=== PATIENT | male | born 1965 | race Caucasian/White ===

== ENCOUNTER 2016-05-20 15:23 | Emergency (ER) | payer MEDICAID, OTHER ==
[~2016-05-20] VITALS: Ht 180.3 cm; Wt 108.9 kg
[2016-05-20 16:04] LABS: Basophils # (auto) 0 uL; Basophils % (auto) 0.2 % (0.0-2.0); Eosinophils # (auto) 0 uL; Eosinophils % (auto) 0.1 % (0.0-7.0); Hematocrit 44.7 % (41.0-53.0); Hemoglobin 14.9 g/dL (13.5-17.5); Lymphocytes # (auto) 1.6 uL; Lymphocytes % (auto) 13.2 % (10.0-50.0); Mean Corpuscular Hemoglobin 28.1 pg (28.0-32.0); Mean Corpuscular Hgb Conc. 33.4 g/dL (32.0-36.0); Mean Corpuscular Volume 84.2 fL (80.0-100.0); Mean Platelet Volume 7.8 fL (7.4-10.4); Monocytes # (auto) 0.4 uL; Monocytes % (auto) 3.1 % (0.0-12.0); Neutrophils # (auto) 9.8 uL; Neutrophils % (auto) 83.4 % (37.0-80.0); Platelet Count (auto) 317 10^3/uL (140-450); Red Cell Distribution Width 13.5 % (11.6-16.0); White Blood Cell 11.8 10^3/uL (4.4-10.8)
[2016-05-20 16:22] LABS: BUN/Creatinine Ratio 11.8; Calcium 8.7 mg/dL (8.5-10.1); Magnesium 2.2 mg/dL (1.6-2.6); Potassium 3.8 mmol/L (3.5-5.1)
[2016-05-20] MEDS ORDERED: LABETALOL HCL 5 MG/ML 4ML SYRINGE IV ONE (16:30)
[2016-05-20] MEDS ORDERED: ONDANSETRON HCL 4 MG/2 ML VIAL IV ONE (16:30)
[2016-05-20] MEDS ORDERED: cefTRIAXone 1GM/50ML D5W 50 ML IV ONE (16:30)
[2016-05-20] MEDS ORDERED: MORPHINE SULFATE 4 MG/ML SYRG IV ONE (16:30)
[2016-05-20 16:36] LABS: Bilirubin, Total 0.3 mg/dL (0.2-1.0); Total Protein 8.1 g/dL (6.4-8.2)
[2016-05-20 17:11] LABS: Urine Bilirubin Negative (Negative); Urine Blood Negative /uL (Negative); Urine Color Yellow (Yellow); Urine Glucose Normal (Normal); Urine Ketone Negative (Negative); Urine Nitrite Negative (Negative); Urine RBC 2 /hpf (0 - 3); Urine Squamous Epithelial Cell FEW /hpf (<5); Urine Urobilinogen Normal (Negative)
[2016-05-20 17:28] LABS: INR 1.02 (0.9-1.15); Partial Thromboplastin Time 26.2 sec (22.64-33.71); Prothrombin Time 10.5 sec (9.37-12.3)
[2016-05-20] MEDS ORDERED: CLOPIDOGREL BISULFATE 75 MG TAB PO ONE (17:45)
[2016-05-20] MEDS ORDERED: ENOXAPARIN SOD 120 MG/0.8 ML SYRINGE SC ONE (17:45)
[2016-05-20] MEDS ORDERED: SODIUM CHLORIDE 0.9% 1,000 ML IV SCH (18:05)
[2016-05-20] MEDS ORDERED: TEMAZEPAM 15 MG CAP PO PRN (18:15)
[2016-05-20] MEDS ORDERED: PROMETHAZINE HCL 25 MG/ML 1ML IV PRN (18:15)
[2016-05-20] MEDS ORDERED: ACETAMINOPHEN 500 MG TAB PO PRN (18:15)
[2016-05-20] MEDS ORDERED: MORPHINE SULF INJ 2 MG/ML SYRINGE 1ML IV PRN ×2 (18:15)
[2016-05-20] MEDS ORDERED: LACTULOSE 20Gm/30ML SOLN PO PRN (18:15)
[2016-05-20] MEDS ORDERED: DEXTROSE (50%) 50ML SYRG IV PRN (18:15)
[2016-05-20] MEDS ORDERED: LORazepam 0.5 MG TAB PO PRN (18:15)
[2016-05-20] MEDS ORDERED: HYDROcodone-ACET 5/325MG TAB PO PRN (18:15)
[2016-05-20] MEDS ORDERED: NITROGLYCERIN 0.4 MG SL TAB SL PRN (18:15)
[2016-05-20 18:16] VITALS: BP 142/95
[2016-05-20] MEDS ORDERED: NITROGLYCERIN 0.2MG/HR TOPICAL PATCH TD ONE (18:45)
[2016-05-20] MEDS ORDERED: ASPirin 81 mg TAB PO ONE (18:45)
[2016-05-20] MEDS ORDERED: PANTOPRAZOLE 40 MG TAB PO ONE (18:45)
[2016-05-20] MEDS ORDERED: ENOXAPARIN SOD 40 MG/0.4 ML SYRINGE SC ONE (18:45)
[2016-05-20] MEDS ORDERED: ATORVASTATIN 20 MG TAB PO SCH (22:00)
[2016-05-20] MEDS ORDERED: METOPROLOL TARTRATE 25 MG TAB PO SCH (22:00)
[2016-05-20] MEDS ORDERED: InsuLIN REG 1unit/0.01ml Soln (100units/ml) SC SCH (22:00)
[2016-05-20] MEDS ORDERED: ACCU-CHEK COMFORT CURVE STRIP VI SCH (22:00)
[2016-05-21] MEDS ORDERED: ENOXAPARIN SOD 40 MG/0.4 ML SYRINGE SC SCH (10:00)
[2016-05-21] MEDS ORDERED: ASPirin 81 mg TAB PO SCH (10:00)
[2016-05-21] MEDS ORDERED: PANTOPRAZOLE 40 MG TAB PO SCH (10:00)
[2016-05-21] MEDS ORDERED: NITROGLYCERIN 0.2MG/HR TOPICAL PATCH TD SCH (10:00)
== END 2016-05-20 18:53 | disposition left against medical advice (07) ==
LOC: EDBD 15:23 → ER 15:23
DX: R07.89 Other chest pain (principal); R79.89 Other specified abnormal findings of blood chemistry; J40 Bronchitis, not specified as acute or chronic; E11.9 Type 2 diabetes mellitus without complications; E78.5 Hyperlipidemia, unspecified; I10 Essential (primary) hypertension; R42 Dizziness and giddiness; R51 Headache; Z53.29 Procedure and treatment not carried out because of patient's decision for other reasons
CPT/HCPCS: 36415; 71020; 80053; 81001; 82550; 83036; 83735; 83880; 84484; 85025; 85379; 85610; 85652; 85730; 86141; 87040; 93005; 96365; 96372; 96375; 99285; G0434; J0696; J1650; J2270; J2405; J3490

== ENCOUNTER 2019-03-23 20:30 | Emergency (ER) | payer MEDICAID ==
[~2019-03-23] VITALS: Ht 170.2 cm; Wt 124.7 kg
[2019-03-23 20:42] VITALS: BP 163/90
[2019-03-23] MEDS ORDERED: BACITRACIN INJ 50000 UNIT VIAL TOP ONE (22:30)
[2019-03-23] MEDS ORDERED: TETRACAINE HCL 0.5% OPTH(EYE) SOLN 4ML EACHEYE ONE (22:30)
[2019-03-23] MEDS ORDERED: MORPHINE SULF INJ 2 MG/ML SYRINGE 1ML IM ONE (23:00)
[2019-03-23] MEDS ORDERED: ONDANSETRON ODT 4 MG TAB PO ONE (23:00)
[2019-03-23] MEDS ORDERED: BACITRACIN TOP OINT 1 UD PKG TOP ONE (23:05)
== END 2019-03-23 23:58 | disposition home or self-care (01) ==
LOC: ER 20:32
DX: T15.01XA Foreign body in cornea, right eye, initial encounter (principal); H16.001 Unspecified corneal ulcer, right eye; E11.9 Type 2 diabetes mellitus without complications; E78.5 Hyperlipidemia, unspecified; I10 Essential (primary) hypertension; X58.XXXA Exposure to other specified factors, initial encounter; Y93.89 Activity, other specified; Y92.89 Other specified places as the place of occurrence of the external cause; Y99.8 Other external cause status
CPT/HCPCS: 65222; 96372; 99283; J2270; Q0162

== ENCOUNTER 2020-04-14 16:14 | Emergency (ER) | payer MEDICAID ==
[~2020-04-14] VITALS: Ht 175.3 cm; Wt 136.1 kg
[2020-04-14 17:28] VITALS: BP 153/114
== END 2020-04-14 17:53 | disposition home or self-care (01) ==
LOC: EDBD 16:14 → ER 16:14
DX: S09.90XA Unspecified injury of head, initial encounter (principal); S02.2XXA Fracture of nasal bones, initial encounter for closed fracture; E11.9 Type 2 diabetes mellitus without complications; E78.5 Hyperlipidemia, unspecified; I10 Essential (primary) hypertension; X58.XXXA Exposure to other specified factors, initial encounter; Y93.89 Activity, other specified; Y92.89 Other specified places as the place of occurrence of the external cause; Y99.8 Other external cause status
CPT/HCPCS: 70450; 70486; 71250; 72125; 74176; 93005